=== PATIENT | male | born 1940 | race Caucasian/White ===

== ENCOUNTER 2024-07-13 22:33 | Emergency (ER) | payer OTHER, MEDICARE ==
[2024-07-13 22:53] LABS: BASOPHILS ABSOLUTE AUTO 0.04 K/uL (0.00-0.20); BASOPHILS PERCENT AUTO 0.4 % (0.0-2.0); EOSINOPHILS ABSOLUTE AUTO 0.19 K/uL (0.00-0.50); HEMATOCRIT 38.8 % (39.0-49.0); HEMOGLOBIN 12.6 g/dL (13.1-16.8); IMMATURE GRAN ABSOLUTE AUTO 0.01 10^3/uL (0.00-0.50); IMMATURE GRAN PERCENT AUTO 0.1 % (0.0-5.0); LYMPHOCYTES PERCENT AUTO 10.5 % (10.0-50.0); MEAN CORPUSCULAR HEMOGLOBIN 31.8 pg (28.2-33.3); MEAN CORPUSCULAR HGB CONC 32.5 g/dL (31.7-36.0); MONOCYTES ABSOLUTE AUTO 0.61 K/uL (0.00-1.00); MONOCYTES PERCENT AUTO 6.4 % (2.0-14.0); NEUTROPHILS ABSOLUTE AUTO 7.65 K/uL (1.40-7.00); NEUTROPHILS PERCENT AUTO 80.6 % (45.0-80.0); PLATELET COUNT,PLT 112 K/uL (150-350); RED BLOOD CELL COUNT 3.96 M/uL (4.33-5.41); RED CELL DISTRIBUTION WIDTH 13.1 % (11.2-14.1); WHITE BLOOD CELL COUNT,WBC 9.5 K/uL (4.0-10.2)
[2024-07-13 23:09] LABS: INR 1.1 (0.9-1.1); PROTHROMBIN TIME 10.5 SEC (9.0-11.1)
[2024-07-13 23:14] LABS: ALANINE AMINOTRANSFERASE,ALT 14 U/L (12-78); ALBUMIN 3.3 g/dL (3.4-5.0); ALKALINE PHOSPHATASE 57 IU/L (46-116); ANION GAP 11.1 meq/L (7-15); ASPARTATE AMNIOTRANSFERASE,AST 17 U/L (15-37); BILIRUBIN TOTAL 1.1 mg/dL (0.2-1.0); BLOOD UREA NITROGEN,BUN 28 mg/dL (7-18); CARBON DIOXIDE,CO2 22.9 mmol/L (21.0-32.0); CHLORIDE,CL 106 mmol/L (98-107); CREATININE 1.03 mg/dL (0.51-1.17); GLUCOSE RANDOM 116 mg/dL (70-99); POTASSIUM,K 4.4 mmol/L (3.5-5.1); PROTEIN TOTAL,TP 6.7 g/dL (6.4-8.2); SODIUM,NA 140 mmol/L (136-145)
[2024-07-13 23:18] VITALS: BP 103/55; PULSE 89
[2024-07-13 23:25] LABS: ESTIMATED GFR 73 mL/min (>=60)
== END 2024-07-14 00:05 | disposition home or self-care (01) ==
LOC: LL.ED 22:33
DX: U07.1 COVID-19 (principal); J44.89 Other specified chronic obstructive pulmonary disease; Z88.8 Allergy status to other drugs, medicaments and biological substances; Z79.82 Long term (current) use of aspirin; Z79.899 Other long term (current) drug therapy
CPT/HCPCS: 36415; 80053; 83735; 85025; 85610; 99284

== ENCOUNTER 2024-10-31 06:05 | Emergency (ER) | payer OTHER, MEDICARE ==
[2024-10-31] MEDS: Albuterol/Ipratropium 3.0-0.5 MG/3 ML Neb Soln NEB ONE ×3 (06:10→06:26)
[2024-10-31] MEDS: Albuterol/Ipratropium 3.0-0.5 MG/3 ML Neb Soln ONE (06:26)
[2024-10-31] MEDS: methylPREDNISolone Sodium Succinate 125 MG/2 ML SDV IVPUSH ONE (06:26)
[2024-10-31 06:41] LABS: BASOPHILS ABSOLUTE AUTO 0.05 K/uL (0.00-0.20); BASOPHILS PERCENT AUTO 0.4 % (0.0-2.0); EOSINOPHILS ABSOLUTE AUTO 0.44 K/uL (0.00-0.50); EOSINOPHILS PERCENT AUTO 3.6 % (0.0-5.0); HEMATOCRIT 45.5 % (39.0-49.0); HEMOGLOBIN 14.6 g/dL (13.1-16.8); IMMATURE GRAN ABSOLUTE AUTO 0.03 10^3/uL (0.00-0.04); IMMATURE GRAN PERCENT AUTO 0.2 % (0.0-0.4); LYMPHOCYTES ABSOLUTE AUTO 2.62 K/uL (0.50-3.50); LYMPHOCYTES PERCENT AUTO 21.3 % (10.0-50.0); MEAN CORPUSCULAR HEMOGLOBIN 31.5 pg (28.2-33.3); MEAN CORPUSCULAR HGB CONC 32.1 g/dL (31.7-36.0); MEAN CORPUSCULAR VOLUME 98.1 fL (84.0-98.0); MONOCYTES ABSOLUTE AUTO 0.61 K/uL (0.00-1.00); NEUTROPHILS ABSOLUTE AUTO 8.56 K/uL (1.40-7.00); NEUTROPHILS PERCENT AUTO 69.5 % (45.0-80.0); PLATELET COUNT,PLT 157 K/uL (150-350); RED BLOOD CELL COUNT 4.64 M/uL (4.33-5.41); WHITE BLOOD CELL COUNT,WBC 12.3 K/uL (4.0-10.2)
[2024-10-31 07:04] LABS: ALBUMIN 3.7 g/dL (3.4-5.0); BILIRUBIN TOTAL 1.2 mg/dL (0.2-1.0); CALCIUM 8.4 mg/dL (8.5-10.1); CARBON DIOXIDE,CO2 25.7 mmol/L (21.0-32.0); CREATININE 0.89 mg/dL (0.51-1.17); EST CRCL DRUG DOSING (CG) 59.83 mL/min; POTASSIUM,K 3.7 mmol/L (3.5-5.1)
[2024-10-31 07:25] LABS: CORONAVIRUS COVID-19 NAA NEGATIVE (NEGATIVE); INFLUENZA A NAA NEGATIVE (NEGATIVE); INFLUENZA B NAA NEGATIVE (NEGATIVE); RESPIRATORY SYNCYTIAL VIR NAA NEGATIVE (NEGATIVE)
[2024-10-31] MEDS: Take Home: Albuterol/Ipratropium 3.0-0.5 MG/3 ML Neb Soln, 4 Neb Pack NEB ONE (07:55)
[2024-10-31 08:18] VITALS: BP 109/58; PULSE 86
== END 2024-10-31 09:00 | disposition home or self-care (01) ==
LOC: LL.ED 06:05
DX: J45.901 Unspecified asthma with (acute) exacerbation (principal); E78.00 Pure hypercholesterolemia, unspecified; Z88.8 Allergy status to other drugs, medicaments and biological substances; Z79.82 Long term (current) use of aspirin; Z79.899 Other long term (current) drug therapy; Z79.51 Long term (current) use of inhaled steroids
CPT/HCPCS: 0241U; 36415; 71046; 80053; 85025; 94640; 96374; 99285; A9270; J2919; J7620